=== PATIENT | female | born 1950 | race Caucasian/White ===

== ENCOUNTER 2018-02-07 10:32 | Inpatient (IN) | payer OTHER ==
[2018-02-07 10:51] VITALS: BMI 25.3
--- NOTE | 2018-02-07 13:57 | HP ---
CIWA Score - CIWA Score Nausea/Vomitin-No Nausea/No Vomiting Muscle Tremors: 4-Moderate,w/Arms Extend Anxiety: 4-Mod. Anxious/Guarded Agitation: 3 Paroxysmal Sweats: 1-Minimal Palms Moist Orientation: 0-Oriented Tacttile Disturbances: 0-None Auditory Disturbances: 0-None Visual Disturbances: 0-None Headache: 2-Mild CIWA-Ar Total Score: 14 Admission ROS [facility] - HPI Chief Complaint: ALCOHOL WITHDRAWAL SX Allergies/Adverse Reactions: Allergies Allergy/AdvReac Type Severity Reaction Status Date / Time No Known Allergies Allergy Verified 02/07/18 11:15 History of Present Illness: 67 Y/O H/FEMALE WITH A HX OF ALCOHOL DEPENDENCE SEEKING DETOX TX. FIRST TIME HERE. PT HAS LIMITED SPOKEN KAZAKH. PT WAS DISCHARGED FROM [facility] TODAY AND REFERRED HERE FOR DETOX TREATMENT. HX OF T2DM, HTN, GERD, ASTHMA, ANEMIA, AND DEPRESSION. ALERT O X 3. Exam Limitations: No Limitations, Language Barrier - Ebola screening Have you traveled outside of the country in the last 21 days: No Have you had contact with anyone from an Ebola affected area: No Have you been sick,other than usual withdrawal symptoms: No Do you have a fever: No - Review of Systems Constitutional: Loss of Appetite, Changes in sleep EENT: reports: Blurred Vision (WEARS GLASSES) Respiratory: reports: Shortness of Breath (HX ASTHMA-- ON ALBUTEROL INH.), Wheezing Cardiac: reports: Lightheadedness GI: reports: Diarrhea, Nausea, Poor Appetite, Poor Fluid Intake, Vomiting : reports: No Symptoms Reported Musculoskeletal: reports: Back Pain, Joint Pain, Muscle Pain Integumentary: reports: No Symptoms Reported Neuro: reports: Headache, Tremors, Dizziness Endocrine: reports: No Symptoms Reported Hematology: reports: Anemia Psychiatric: reports: Anxious, Depressed Other Systems: Reviewed and Negative Patient History - Patient Medical History Hx Anemia: Yes (ON IRON SUPPLEMENT) Hx Asthma: Yes (ALBUTROL INH) Hx Chronic Obstructive Pulmonary Disease (COPD): No Hx Cardiac Disorders: No Hx Hypertension: Yes (ON LISINOPRIL 10 MG DAILY) Hx Hypercholesterolemia: Yes (ON SIMVASTATIN 20 MG HS) HX Cerebrovascular Accident: No Hx Seizures: No Hx Diabetes: Yes (IDDM-ON MED) Hx Gastrointestinal Disorders: Yes (acid reflux-ON OMEPRAZOLE DAILY) Hx Genitourinary Disorders: No Hx Sexually Transmitted Disorders: No Hx Renal Disease (ESRD): No Hx Thyroid Disease: No Hx Human Immunodeficiency Virus (HIV): No (NEGATIVE HX) Hx Hepatitis C: No Hx Depression: Yes (ON MEDS) Hx Suicide Attempt: No (DENIES S/I) Hx Bipolar Disorder: No Hx Schizophrenia: No - Patient Surgical History Past Surgical History: Yes Hx Neurologic Surgery: No Hx Cataract Extraction: Yes (bilateral in 2015) Hx Cardiac Surgery: No Hx Lung Surgery: No Hx Breast Surgery: No Hx Breast Biopsy: No Hx Abdominal Surgery: Yes (gastric bypass in 2013) Hx Appendectomy: No Hx Cholecystectomy: No Hx Genitourinary Surgery: No Hx Section: No Hx Orthopedic Surgery: No Anesthesia Reaction: No - PPD History Previous Implant?: Yes Documented Results: Negative w/o proof Implanted On Prior [facility] Admission?: No PPD to be Administered?: Yes - Reproductive History Patient is a Female of Child Bearing Age (11 -55 yrs old): Yes (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 History Hx Alcohol Use: Yes (BEER) Hx Substance Use: No Hx Substance Use Treatment: Yes (LAST TX AT [facility]) - Substances Abused Alcohol-beer Route: Oral Frequency: Daily Amount used: 3-4 6 pks. Age of first use: 23 Date of Last Use: 02/05/18 Family Disease History - Family Disease History Family Disease History: Diabetes: Mother, CA: Mother, Other: Father (HIGH CHOLESTEROL) Admission Physical Exam S - Vital Signs Vital Signs: Vital Signs - 24 hr 02/07/18 10:44 Temperature 96.8 F L Pulse Rate 98 H Respiratory 20 Rate Blood Pressure 162/85 - Physical General Appearance: Yes: Moderate Distress, Irritable, Anxious HEENTM: Yes: EOMI, Normocephalic, PEDRO, Pharynx Normal Respiratory: Yes: Chest Non-Tender, Lungs Clear, Normal Breath Sounds, No Respiratory Distress Neck: Yes: Supple, Trachea in good position Breast: Yes: Breast Exam Deferred Cardiology: Yes: Regular Rhythm, Regular Rate, S1, S2 Abdominal: Yes: Normal Bowel Sounds, Non Tender, Flat, Soft Genitourinary: Yes: Other Musculoskeletal: Yes: Within Normal Limits Extremities: Yes: Normal Range of Motion, Non-Tender Neurological: Yes: Fully Oriented, Alert, Motor Strength 5/5, Normal Mood/Affect Integumentary: Yes: Dry, Warm, Pale Lymphatic: Yes: Within Normal Limits - Diagnostic (1) Alcohol dependence with uncomplicated withdrawal Current Visit: Yes Status: Acute (2) Hypertension Current Visit: Yes Status: Chronic Qualifiers: Hypertension type: essential hypertension Qualified Code(s): I10 - Essential (primary) hypertension (3) Hypercholesterolemia Current Visit: Yes Status: Chronic (4) History of anemia Current Visit: Yes Status: Chronic (5) GERD (gastroesophageal reflux disease) Current Visit: Yes Status: Chronic Qualifiers: Esophagitis presence: esophagitis presence not specified Qualified Code(s) : K21.9 - Gastro-esophageal reflux disease without esophagitis (6) History of asthma Current Visit: Yes Status: Chronic (7) T2DM (type 2 diabetes mellitus) Current Visit: Yes Status: Chronic Qualifiers: Chronic kidney disease stage: unspecified stage (8) URI (upper respiratory infection) Current Visit: Yes Status: Acute Qualifiers: Streptococcal tonsillitis recurrence: not specified as recurrent or not Comment: PT CAME TO ADMISSIONS ALREADY ON TREATMENT WITH AZYTHROMYCIN 250 MG PO DAILY X 4 DAYS;LEVAQUIN 500 MG PO DAILY X 4 DAYS AND TESSALON PERLES 100 MG 1 CAP 3 TIMES A DAY X 5 DAYS FOR COUGH. Cleared for Admission [facility] - Detox or Rehab Detox Regimen/Protocol: Librium B[facility] Breath Alcohol Content Breath Alcohol Content: 0 Urine Pregancy Test - Result Urine Test Results: Negative- NO Line Present Urine Drug Screen - Results Drug Screen Negative: Yes Urine Drug Screen Results: TCA-Tricyclic Antidepress
[2018-02-07] MEDS ORDERED: MAG HYDROX/AL HYDROX/SIMETH 30 ML UNIT-DOSE CUP PO PRN (14:21)
[2018-02-07] MEDS ORDERED: MENTHOL/PHENOL 1 EACH UD MM PRN (14:21)
[2018-02-07] MEDS ORDERED: MAGNESIUM CITRATE 300 ML BOTTLE PO PRN (14:21)
[2018-02-07] MEDS ORDERED: MAGNESIUM HYDROX 2400MG/30ML ORAL SUSPENSION 30 ML CUP PO PRN (14:21)
[2018-02-07] MEDS ORDERED: LOPERAMIDE HCL 2 MG CAPSULE PO PRN (14:21)
[2018-02-07] MEDS ORDERED: P-EPHED 60MG/TRIPROLIDI 2.5MG TABLET PO PRN (14:21)
[2018-02-07] MEDS ORDERED: IBUPROFEN 400 MG TABLET (FP) PO PRN (14:21)
[2018-02-07] MEDS ORDERED: ACETAMINOPHEN 325 MG TABLET (FP) PO PRN (14:21)
[2018-02-07] MEDS ORDERED: guaiFENesin/D-METHORPHAN HB 10 ML UNIT-DOSE CUPS PO PRN (14:21)
[2018-02-07] MEDS ORDERED: chlordiazePOXIDE HCL 25 MG CAPSULE PO PRN (14:21)
[2018-02-07] MEDS ORDERED: ALBUTEROL SO4 18 GM HFA INHALER IH PRN (14:25)
[2018-02-07] MEDS ORDERED: chlordiazePOXIDE HCL 25 MG CAPSULE PO ONE (15:00)
[2018-02-07] MEDS ORDERED: ASPIRIN COATED 81 MG TABLET.EC PO SCH (15:30)
[2018-02-07] MEDS ORDERED: AZITHROMYCIN 250 MG TABLET PO SCH (15:30)
[2018-02-07] MEDS ORDERED: FUROSEMIDE 20 MG TABLET (FP) PO SCH (15:30)
[2018-02-07] MEDS ORDERED: CALCIUM (OYSTER SHELL) 500 MG TABLET (FP) PO SCH (15:30)
[2018-02-07] MEDS: GABAPENTIN 300 MG CAPSULE (FP) PO SCH ×2 (15:31→22:29)
--- NOTE | 2018-02-07 16:10 | EKG ---
Test Reason : Blood Pressure : / mmHG Vent. Rate : 083 BPM Atrial Rate : 083 BPM P-R Int : 142 ms QRS Dur : 076 ms QT Int : 362 ms P-R-T Axes : 069 027 050 degrees QTc Int : 425 ms NORMAL SINUS RHYTHM NORMAL ECG NO PREVIOUS ECGS AVAILABLE Confirmed by HANK GUZMAN MD ([id number]) on 02/07/2018 4:09:42 PM Referred By: Confirmed By:HANK GUZMAN MD
[2018-02-07] MEDS ORDERED: PATIENT'S OWN MEDICATION (NON-FORMULARY) (Omeprazole Magnesium [Omeprazole Magnesium] 40 M PO SCH (16:15)
[2018-02-07] MEDS ORDERED: FERROUS SO4 325 MG TABLET (FP) PO SCH (17:00)
[2018-02-07 17:03] LABS: MEAN CELL VOLUME 88.1 fl (80-96); RBC 3.07 M/mm3 (3.60-5.2)
[2018-02-07 17:05] LABS: HEMATOCRIT 27.1 % (32.4-45.2); HEMOGLOBIN 9.2 GM/dL (10.7-15.3); MCHC 34.1 g/dl (32.0-36.0); MEAN PLT VOLUME 8.2 fl (7.5-11.1); PLATELET COUNT 305 K/MM3 (134-434); WHITE BLOOD COUNT 3.1 K/mm3 (4.0-10.0)
[2018-02-07 17:37] LABS: URINE APPEARANCE SLCLOUDY; URINE BILIRUBIN NEGATIVE (<2.0 mg/dL); URINE COLOR LTYELLOW; URINE GLUCOSE (UA) NEGATIVE (NEGATIVE); URINE KETONE NEGATIVE (NEGATIVE); URINE NITRITE NEGATIVE (NEGATIVE); URINE PROTEIN NEGATIVE (NEGATIVE); URINE UROBILINOGEN NEGATIVE mg/dL (0.2-1.0)
[2018-02-07 17:46] LABS: URINE LEUK ESTERASE 3+ (NEGATIVE)
[2018-02-07 18:08] LABS: EPI CELLS RARE /HPF (FEW)
[2018-02-07] MEDS: chlordiazePOXIDE HCL 25 MG CAPSULE PO SCH ×2 (18:22→22:29)
[2018-02-07 19:15] LABS: ALBUMIN 2.2 g/dl (3.4-5.0); ANION GAP 7 (8-16); BLOOD UREA NITROGEN 8 mg/dL (7-18); CALCIUM 7.6 mg/dL (8.5-10.1); CHLORIDE 110 mmol/L (98-107); CO2 25 mmol/L (21-32); CREATININE 0.6 mg/dL (0.55-1.02); GLUCOSE,RANDOM 163 mg/dL (74-106); POTASSIUM 4.9 mmol/L (3.5-5.1); SGOT/AST 115 U/L (15-37); SGPT/ALT 76 U/L (12-78); SODIUM 142 mmol/L (136-145)
[2018-02-07 19:17] LABS: ALK PHOS 127 U/L (45-117); BILIRUBIN,TOTAL 0.3 mg/dL (0.2-1.0); TOT PROT 5.4 g/dl (6.4-8.2)
[2018-02-07 19:47] LABS: SICKLE CELL SCREEN NEGATIVE (NEGATIVE)
[2018-02-07] MEDS ORDERED: PATIENT'S OWN MEDICATION (NON-FORMULARY) (Simvastatin 20 MG) PO SCH (22:00)
[2018-02-07] MEDS ORDERED: THIAMINE HCL 100 MG TABLET (FP) PO SCH (22:00)
[2018-02-07] MEDS ORDERED: MELATONIN 5 MG TABLETS PO PRN (22:00)
[2018-02-07] MEDS ORDERED: INSULIN (LEVEMIR) 100 UNITS/ML UNITS SQ SCH (22:00)
[2018-02-07] MEDS ORDERED: MONTELUKAST NA 10 MG TABLET PO SCH (22:00)
[2018-02-08] MEDS: chlordiazePOXIDE HCL 25 MG CAPSULE PO SCH (05:41)
[2018-02-08] MEDS: GABAPENTIN 300 MG CAPSULE (FP) PO SCH (05:42)
[2018-02-08] MEDS ORDERED: glipiZIDE 5 MG TABLET (FP) PO SCH (07:00)
[2018-02-08 08:16] VITALS: BP 100/98; PULSE 72; TEMP 97.5
--- NOTE | 2018-02-08 08:41 | PN ---
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
[2018-02-08] MEDS ORDERED: PRENATAL VITAMINS W/ FOLIC ACID TABLET (FP) PO SCH (10:00)
[2018-02-08] MEDS ORDERED: LISINOPRIL 10 MG TABLET (FP) PO SCH (10:00)
[2018-02-08] MEDS ORDERED: DEXTROSE 50%-WATER - 25 GM/50 ML VIAL IVPUSH ONE (11:45)
[2018-02-08] MEDS ORDERED: DEXTROSE 5%-WATER - 1,000 ML IV SCH (11:45)
--- NOTE | 2018-02-08 12:14 | CONSULT ---
[facility] Psychiatric Consult - Data Date of interview: 02/08/18 Identifying data: Computer Assembler approached patient bedside. Computer Assembler unable to locate patient. Computer Assembler informed by nursing staff that patient was sent out 911.
--- NOTE | 2018-02-08 13:51 | DS ---
[facility] Detox Discharge Summary Admission Date: 02/07/18 Discharge Date: 02/08/18 - History Present History: Alcohol Dependence Additional Comments: 67 years old female admitted on 02/07/18 for alcohol withdrawal sx found unresponsive rapid response was called finger stick 13 O2 va nasal, IV 50 % 100ml dextro finger stick 106 bp 180/123 transferred to [facility] for further evaluation call er that the patient will be admitted for medical treatment - Physical Exam Results Vital Signs: Vital Signs Temperature 97.5 F L 02/08/18 05:50 Pulse Rate 72 02/08/18 05:50 Respiratory Rate 16 02/08/18 06:30 Blood Pressure 100/98 02/08/18 05:50 O2 Sat by Pulse Oximetry (%) Pertinent Admission Physical Exam Findings: withdrawal sx Vital Signs Temperature 97.5 F L 02/08/18 05:50 Pulse Rate 72 02/08/18 05:50 Respiratory Rate 16 02/08/18 06:30 Blood Pressure 100/98 02/08/18 05:50 O2 Sat by Pulse Oximetry (%) Laboratory Last Values WBC 3.1 K/mm3 (4.0-10.0) L 02/07/18 14:40 RBC 3.07 M/mm3 (3.60-5.2) L 02/07/18 14:40 Hgb 9.2 GM/dL (10.7-15.3) L 02/07/18 14:40 Hct 27.1 % (32.4-45.2) L 02/07/18 14:40 MCV 88.1 fl (80-96) 02/07/18 14:40 MCH 30.0 pg (25.7-33.7) 02/07/18 14:40 MCHC 34.1 g/dl (32.0-36.0) 02/07/18 14:40 RDW 14.0 % (11.6-15.6) 02/07/18 14:40 Plt Count 305 K/MM3 (134-434) 02/07/18 14:40 MPV 8.2 fl (7.5-11.1) 02/07/18 14:40 Sickle Cell Screen Negative (NEGATIVE) 02/07/18 14:40 Sodium 142 mmol/L (136-145) 02/07/18 14:40 Potassium 4.9 mmol/L (3.5-5.1) 02/07/18 14:40 Chloride 110 mmol/L (98-107) H 02/07/18 14:40 Carbon Dioxide 25 mmol/L (21-32) 02/07/18 14:40 Anion Gap 7 (8-16) L 02/07/18 14:40 BUN 8 mg/dL (7-18) 02/07/18 14:40 Creatinine 0.6 mg/dL (0.55-1.02) 02/07/18 14:40 Creat Clearance w eGFR > 60 (>60) 02/07/18 14:40 POC Glucometer 13 UNITS (80-120) 02/08/18 07:57 Random Glucose 163 mg/dL (74-106) H 02/07/18 14:40 Calcium 7.6 mg/dL (8.5-10.1) L 02/07/18 14:40 Total Bilirubin 0.3 mg/dL (0.2-1.0) 02/07/18 14:40 AST 115 U/L (15-37) H 02/07/18 14:40 ALT 76 U/L (12-78) 02/07/18 14:40 Alkaline Phosphatase 127 U/L (45-117) H 02/07/18 14:40 Total Protein 5.4 g/dl (6.4-8.2) L 02/07/18 14:40 Albumin 2.2 g/dl (3.4-5.0) L 02/07/18 14:40 Urine Color Ltyellow 02/07/18 17:07 Urine Appearance Slcloudy 02/07/18 17:07 Urine pH 6.0 (5.0-8.0) 02/07/18 17:07 Ur Specific Melvin 1.009 (1.001-1.035) 02/07/18 17:07 Urine Protein Negative (NEGATIVE) 02/07/18 17:07 Urine Glucose (UA) Negative (NEGATIVE) 02/07/18 17:07 Urine Ketones Negative (NEGATIVE) 02/07/18 17:07 Urine Blood Negative (NEGATIVE) 02/07/18 17:07 Urine Nitrite Negative (NEGATIVE) 02/07/18 17:07 Urine Bilirubin Negative (<2.0 mg/dL) 02/07/18 17:07 Urine Urobilinogen Negative mg/dL (0.2-1.0) 02/07/18 17:07 Ur Leukocyte Esterase 3+ (NEGATIVE) H 02/07/18 17:07 Urine WBC (Auto) 7 /hpf (3-5) 02/07/18 17:07 Urine RBC (Auto) 1 /hpf (0-3) 02/07/18 17:07 Ur Epithelial Cells Rare /HPF (FEW) 02/07/18 17:07 RPR Titer Nonreactive (NONREACTIVE) 02/07/18 14:40 lab noted - Treatment Hospital Course: Detox Protocol Followed, Responded well Patient has Accepted a Rehab Referral to: [facility] - Medication Discharge Medications: Ambulatory Orders Albuterol Sulfate Inhaler - [Ventolin Hfa Inhaler -] 2 inh PO Q4H PRN 02/07/18 Aspirin [Aspirin EC] 81 mg PO DAILY 02/07/18 Azithromycin [Zithromax -] 250 mg PO DAILY 02/07/18 Calcium Carbonate [Oyster Shell Calcium] 500 mg PO DAILY 02/07/18 Ferrous Sulfate [Feosol] 650 mg PO DAILY 02/07/18 Folic Acid - 1 mg PO DAILY 02/07/18 Furosemide [Lasix -] 20 mg PO DAILY 02/07/18 Gabapentin [Neurontin -] 300 mg PO Q8H 02/07/18 Glipizide [Glucotrol -] 5 mg PO DAILY 02/07/18 Insulin Glargine,Hum.rec.anlog [Lantus Solostar PEN (NF)] 30 units SQ HS Lisinopril [Zestril] 10 mg PO DAILY 02/07/18 Metformin HCl [Metformin HCl ER] 1,000 mg PO BID 02/07/18 Montelukast Sodium [Singulair] 10 mg PO HS 02/07/18 Omeprazole Magnesium 40 mg PO DAILY 02/07/18 Quetiapine Fumarate [Seroquel] 100 tab PO HS 02/07/18 Simvastatin [Zocor -] 20 mg PO HS 02/07/18 Trazodone HCl 50 mg PO HS 02/07/18 levoFLOXacin [Levaquin -] 500 mg PO DAILY 02/07/18 - Diagnosis (1) Alcohol dependence with uncomplicated withdrawal Current Visit: Yes Status: Acute (2) GERD (gastroesophageal reflux disease) Current Visit: Yes Status: Chronic Qualifiers: Esophagitis presence: esophagitis presence not specified Qualified Code(s) : K21.9 - Gastro-esophageal reflux disease without esophagitis (3) Hypercholesterolemia Current Visit: Yes Status: Chronic (4) Hypertension Current Visit: Yes Status: Chronic Qualifiers: Hypertension type: essential hypertension Qualified Code(s): I10 - Essential (primary) hypertension (5) T2DM (type 2 diabetes mellitus) Current Visit: Yes Status: Chronic Qualifiers: 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
[2018-02-08] MEDS ORDERED: chlordiazePOXIDE HCL 25 MG CAPSULE PO SCH (17:00)
[2018-02-09] MEDS ORDERED: chlordiazePOXIDE 5 MG CAPSULE PO SCH (17:00)
[2018-02-10] MEDS ORDERED: chlordiazePOXIDE HCL 10 MG CAPSULE PO SCH (17:00)
== END 2018-02-08 08:26 | disposition short-term general hospital (02) | DRG 897 ==
LOC: EDSEX 10:32 → YASAS 10:32 → Y6N 13:10
PROVIDERS: ADMIT Surgery; ATTEND Surgery
PROC: HZ2ZZZZ Detoxification Services for Substance Abuse Treatment (ICD-10-PCS; principal; 2018-02-07)
DX: F10.230 Alcohol dependence with withdrawal, uncomplicated (principal); I10 Essential (primary) hypertension; K21.9 Gastro-esophageal reflux disease without esophagitis; E78.00 Pure hypercholesterolemia, unspecified; D64.9 Anemia, unspecified; E11.9 Type 2 diabetes mellitus without complications; Z79.4 Long term (current) use of insulin; Z79.84 Long term (current) use of oral hypoglycemic drugs; J06.9 Acute upper respiratory infection, unspecified
CPT/HCPCS: 36415; 80053; 81003; 81015; 82962; 85027; 85660; 86593; 93005; 93010